=== PATIENT | female | born 2000 | race Caucasian/White ===

== ENCOUNTER 2020-07-15 02:07 | Emergency (ER) | payer BC ==
[2020-07-15] MEDS: ONDANSETRON 4 MG TAB.RAPDIS PO ONE ×2 (02:18→03:40)
[2020-07-15 04:08] LABS: APPEARANCE,URINE CLEAR; BILIRUBIN,URINE NEGATIVE (NEGATIVE); COLOR,URINE YELLOW; GLUCOSE, URINE NEGATIVE (NEGATIVE); KETONES,URINE NEGATIVE (NEGATIVE); LEUKOCYTE ESTERASE,URINE TRACE (NEGATIVE); NITRITE,URINE NEGATIVE (NEGATIVE); PROTEIN,URINE NEGATIVE (NEGATIVE); URINE SPECIFIC GRAVITY 1.013; UROBILINOGEN,URINE NEGATIVE mg/dL (<2.0)
[2020-07-15 04:14] LABS: ABSOLUTE BASOPHILS # (AUTO) 0.1 10^3/uL (0.0-0.2); ABSOLUTE LYMPHOCYTES (AUTO) 1.5 10^3/uL (0.5-4.7); ABSOLUTE MONOCYTES (AUTO) 0.8 10^3/uL (0.1-1.4); ABSOLUTE NEUT (AUTO) 11.8 10^3/uL (1.7-8.2); BASOPHILS % (AUTO) 0.6 % (0-2); EOSINOPHILS % (AUTO) 0.1 % (0-6); HEMATOCRIT 39.5 % (36.0-47.0); HEMOGLOBIN 13.9 g/dL (12.0-15.5); LYMPHOCYTES % (AUTO) 10.6 % (13-45); MEAN CORPUSCULAR HEMOGLOBIN 31.8 pg (27.0-33.4); MEAN CORPUSCULAR HGB CONC 35.1 g/dL (32.0-36.0); MEAN CORPUSCULAR VOLUME 91 fl (80-97); MONOCYTES % (AUTO) 5.5 % (3-13); PLATELET COUNT 254 10^3/uL (150-450); RED BLOOD COUNT 4.37 10^6/uL (3.72-5.28); SEGMENTED NEUTROPHILS % (AUTO) 83.2 % (42-78); TOTAL CELLS COUNTED % (AUTO) 100 %; WHITE BLOOD COUNT 14.2 10^3/uL (4.0-10.5)
[2020-07-15 04:22] LABS: ALBUMIN 4.9 g/dL (3.5-5.0); ALKALINE PHOSPHATASE 63 U/L (38-126); ANION GAP 14 (5-19); ASPARTATE AMINO TRANSFERASE 23 U/L (14-36); BILIRUBIN,DIRECT 0.1 mg/dL (0.0-0.4); BILIRUBIN,TOTAL 0.9 mg/dL (0.2-1.3); BLOOD UREA NITROGEN 5 mg/dL (7-20); CALCIUM 9.7 mg/dL (8.4-10.2); CARBON DIOXIDE 21 mmol/L (22-30); CHLORIDE 109 mmol/L (98-107); GLUCOSE 141 mg/dL (75-110); POTASSIUM 4.4 mmol/L (3.6-5.0); TOTAL PROTEIN 8.2 g/dL (6.3-8.2)
[2020-07-15] MEDS ORDERED: NORMAL SALINE 1000 ML 1,000 ML IV ONE ×2 (04:52→07:49)
[2020-07-15] MEDS ORDERED: ONDANSETRON HCL INJ/PF 4 MG/2 ML SDV IV ONE (04:52)
[2020-07-15 06:15] VITALS: BP 127/84
[2020-07-15] MEDS ORDERED: METOCLOPRAMIDE HCL INJ/PF 10 MG/2 ML SDV IV ONE (07:49)
--- NOTE | 2020-07-15 07:55 | ER Document Report ---
ED General - General Chief Complaint: Nausea/Vomiting Stated Complaint: VOMITING/WEAKNESS Time Seen by Provider: 07/15/20 07:34 - HPI Notes: Chief complaint: Cyclic vomiting History of present illness: 20-year-old female presents with recurrent vomiting which she attributes to cyclic vomiting syndrome. States that she had one mixed drink last night she thinks this probably precipitated her vomiting. She says she has vomited more than 10 times overnight. She complains of mild cramping of her stomach and persistent nausea. No fever or chills. No hematemesis or coffee-ground emesis. This episode is identical to her prior episodes. Patient admits that she regularly uses cannabis. She is on Xanax and an antidepressant. She takes metoclopramide intermittently at home but says she was not able to keep this down overnight. She is also on oral contraceptives. Says her periods tend to be regular. - Related Data Allergies/Adverse Reactions: No Known Allergies Allergy (Verified 07/15/20 07:30) Past Medical History - General Information source: Patient, Parent - Social History Smoking Status: Never Smoker Chew tobacco use (# tins/day): No Frequency of alcohol use: Rare Drug Abuse: Marijuana Lives with: Family Family History: Reviewed & Not Pertinent - Past Medical History Cardiac Medical History: Reports: None Pulmonary Medical History: Reports: None Neurological Medical History: Reports: None Endocrine Medical History: Reports: None Renal/ Medical History: Reports: None Malignancy Medical History: Reports: None GI Medical History: Reports: Other - Cyclic vomiting Musculoskeletal Medical History: Reports None Psychiatric Medical History: Reports: Hx Anxiety, Hx Depression Surgical Hx: Negative Review of Systems - Review of Systems Notes: Constitutional: Negative for fever. HENT: Negative for sore throat. Eyes: Negative for visual changes. Cardiovascular: Negative for chest pain. Respiratory: Negative for shortness of breath. Gastrointestinal: As per HPI. Genitourinary: Negative for dysuria. Musculoskeletal: Negative for back pain. Skin: Negative for rash. Neurological: Negative for headaches, weakness or numbness. 10 point ROS negative except as marked above and in HPI. Physical Exam - Vital signs Vitals: Temp Pulse Resp BP Pulse Ox 97.7 F 108 H 16 133/88 H 98 07/15/20 02:14 07/15/20 02:14 07/15/20 02:14 07/15/20 02:14 07/15/20 02:14 - Notes Notes: GENERAL: Slender female appearing in moderate distress complaining of nausea and photophobia. SKIN: Pale. Good turgor no rashes. HEAD: Normocephalic atraumatic. EYES: PERRLA. EOMI. Conjunctivae and sclerae clear. EARS: CANALS AND TMS CLEAR. NOSE: CLEAR. MOUTH: Moist mucosa. Good dentition. No stridor or edema. No drooling. NECK: Supple. No masses or thyromegaly. No adenopathy. Carotids 2+ without bruits. No JVD. BACK: Symmetrical without tenderness. CHEST: Respirations unlabored. Breath sounds clear and symmetrical. HEART: Mildly tachycardic. Regular rhythm. No murmur gallop or rub. ABDOMEN: Soft nontender without masses, organomegaly or rebound. Bowel sounds hyperactive. No bruits. GENITALIA: Deferred. EXTREMITIES: No edema. No calf tenderness. Cap refill less than 1.5 seconds. Dorsalis pedis and posterior tibial pulses 3+ and symmetrical. NEUROLOGICAL: GCS 15. Alert and oriented x3. Normal gait. Fluent speech. Cranial nerves II through XII intact. Sensorimotor and cerebellar normal. Normal tone. PSYCHIATRIC: Appropriate affect. Course - Re-evaluation Re-evalutation: 07/15/20 08:52 Patient was counseled that she needs to avoid smoking marijuana and she understands that this may be a precipitating factor for recurrent episodes of cyclic vomiting. The patient has been treated with 2 L of normal saline IV and she also received some IV metoclopramide. She is tolerating ice chips and popsicles here and subsequently took some sips of water without any difficulty. She is requesting discharge and I would feel this to be appropriate. Findings, clinical impression and plan of treatment have been discussed with patient/family. Understanding of current findings and recommendations has been acknowledged by them and there is agreement regarding disposition and follow-up. - Vital Signs Vital signs: Temp Pulse Resp BP Pulse Ox 97.6 F 76 16 127/84 H 100 07/15/20 06:13 07/15/20 06:13 07/15/20 02:14 07/15/20 06:13 07/15/20 06:13 - Laboratory Results Result Diagrams: 07/15/20 03:50 07/15/20 03:50 Laboratory Results Interpreted: 07/15/20 07/15/20 07/15/20 02:25 03:50 03:50 WBC 14.2 H Lymph % (Auto) 10.6 L Absolute Neuts (auto) 11.8 H Seg Neutrophils % 83.2 H Chloride 109 H Carbon Dioxide 21 L BUN 5 L Glucose 141 H Urine Blood SMALL H Ur Leukocyte Esterase TRACE H Critical Laboratory Results Reviewed: Yes Attending or Supervising Physician who Reviewed Labs: ANDREW CUELLAR - Radiology Results Critical Radiology Results Reviewed: No Critical Results Discharge - Discharge Clinical Impression: Cannabis 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 Increase oral fluids. Gradually resume regular diet as tolerated. You may continue to use Zofran and metoclopramide at home as needed. Follow-up with your primary care provider within the next 3 to 5 days. Return here as needed for new or worsening symptoms: Recurrent or worsening vomiting. Pain that is worsening or unimproved Uncontrolled vomiting High fever or shaking chills Overall worsening Referrals: [facility] [Provider Group] - Follow up as needed
== END 2020-07-15 09:39 | disposition home or self-care (01) ==
LOC: ER 02:07
DX: R11.2 Nausea with vomiting, unspecified (principal); F12.188 Cannabis abuse with other cannabis-induced disorder; R10.9 Unspecified abdominal pain; H53.149 Visual discomfort, unspecified; Z79.899 Other long term (current) drug therapy; F41.9 Anxiety disorder, unspecified; F32.9 Major depressive disorder, single episode, unspecified; R00.0 Tachycardia, unspecified
CPT/HCPCS: 99284; 96361; 96374; 96375; 36415; 84702; 83690; 85025; 80053; 81001; S0119; J2765; J2405; J7030